=== PATIENT | female | born 1995 | race Caucasian/White ===

== ENCOUNTER 2022-06-29 06:25 | Inpatient (IN) | payer OTHER ==
[2022-06-29] MEDS: ELECTROLYTE-148 SOLN 1,000 ML IV SCH (07:45)
[2022-06-29] MEDS ORDERED: morphine SULFATE (PF) 1 MG/2 ML SYRINGE EP ONE (07:48)
[2022-06-29] MEDS ORDERED: ACETAMINOPHEN 325 MG TABLET (FP) PO PRN ×2 (07:48→10:00)
[2022-06-29] MEDS ORDERED: IBUPROFEN 600 MG TABLET (FP) PO PRN (07:48)
[2022-06-29] MEDS ORDERED: ONDANSETRON 4 MG/2 ML VIAL IVPUSH PRN (07:48)
[2022-06-29 07:52] VITALS: BMI 36.2
[2022-06-29] MEDS ORDERED: morphine SULFATE (PF) 1 MG/2 ML SYRINGE ONE (08:14)
[2022-06-29] MEDS ORDERED: ceFAZolin SODIUM 1 GM VIAL ONE (08:15)
[2022-06-29] MEDS ORDERED: ELECTROLYTE-148 SOLN 500 ML IV ONE (08:22)
[2022-06-29] MEDS ORDERED: CITRIC ACID/SODIUM CITRATE 30 ML UNIT-DOSE CUP PO ONE (08:22)
[2022-06-29] MEDS ORDERED: PHENYLEPHRINE HCL 10 MG/1 ML SINGLE DOSE VIAL ONE (08:32)
[2022-06-29] MEDS ORDERED: OXYTOCIN 10 UNITS/ML VIAL ONE (08:48)
[2022-06-29] MEDS ORDERED: KETOROLAC TROMETHAMINE 30 MG/1 ML VIAL ONE (08:59)
[2022-06-29] MEDS ORDERED: MIDAZOLAM HCL 2 MG/2 ML SINGLE DOSE VIAL ONE (08:59)
[2022-06-29] MEDS ORDERED: ONDANSETRON 4 MG/2 ML VIAL ONE (08:59)
[2022-06-29] MEDS ORDERED: FENTANYL CITRATE/PF 50 MCG/ML VIAL ONE (08:59)
[2022-06-29] MEDS: OXYTOCIN 20 UNITS in 0.9% NS 20 UNIT/1,000 ML INFUS.BAG IV SCH ×2 (09:50→17:13)
[2022-06-29] MEDS ORDERED: METHYLERGONOVINE MALEATE 0.2 MG/1 ML AMP IM PRN (10:00)
[2022-06-29] MEDS ORDERED: SENNOSIDES/DOCUSATE COMBO (SENNA PLUS) TABLET (UD) PO PRN (10:00)
[2022-06-29] MEDS ORDERED: IBUPROFEN 800 MG/8 ML IJ IVPB PRN (10:00)
[2022-06-29] MEDS ORDERED: OXYTOCIN 20 UNITS in 0.9% NS 20 UNIT/1,000 ML INFUS.BAG IV ONE (10:34)
[2022-06-29] MEDS: FERROUS SO4 325 MG TABLET (FP) PO SCH ×2 (11:11→17:01)
[2022-06-29] MEDS: PRENATAL VITAMINS W/ FOLIC ACID TABLET (FP) PO SCH (11:12)
[2022-06-29] MEDS ORDERED: oxyCODONE HCL 5 MG TABLET PO PRN (22:00)
[2022-06-30] MEDS: IBUPROFEN 600 MG TABLET (FP) PO PRN ×3 (05:30→17:04)
[2022-06-30] MEDS: SIMETHICONE 80 MG TAB.CHEW (FP) PO PRN ×3 (05:30→18:12)
[2022-06-30 08:16] LABS: BASO % 0.2 % (0-2.0); HEMATOCRIT 30.4 % (32.4-45.2); HEMOGLOBIN 10.3 GM/dL (10.7-15.3); LYMPH % 13.9 % (8-40); MCH 30.6 pg (25.7-33.7); MCHC 33.8 g/dl (32.0-36.0); MEAN CELL VOLUME 90.4 fl (80-96); MEAN PLT VOLUME 7.5 fl (7.5-11.1); MONO % 5.5 % (3.8-10.2); NEUT % 79.4 % (42.8-82.8); PLATELET COUNT 241 10^3/uL (134-434); RBC 3.37 M/mm3 (3.60-5.2); RDW 14.3 % (11.6-15.6); WHITE BLOOD COUNT 10.1 K/mm3 (4.0-10.0)
[2022-06-30] MEDS: FERROUS SO4 325 MG TABLET (FP) PO SCH ×2 (08:43→16:58)
[2022-06-30] MEDS ORDERED: BISACODYL 10 MG SUPP.RECT RC PRN (10:00)
[2022-06-30] MEDS: PRENATAL VITAMINS W/ FOLIC ACID TABLET (FP) PO SCH (10:29)
[2022-06-30] MEDS: oxyCODONE HCL 5 MG TABLET PO PRN ×2 (13:48→18:12)
[2022-06-30] MEDS: ELECTROLYTE-148 SOLN 1,000 ML IV SCH (19:42)
[2022-06-30] MEDS: OXYTOCIN 20 UNITS in 0.9% NS 20 UNIT/1,000 ML INFUS.BAG IV SCH (19:42)
[2022-07-01] MEDS: SIMETHICONE 80 MG TAB.CHEW (FP) PO PRN (03:50)
[2022-07-01] MEDS: PRENATAL VITAMINS W/ FOLIC ACID TABLET (FP) PO SCH ×2 (08:40→09:27)
[2022-07-01] MEDS: FERROUS SO4 325 MG TABLET (FP) PO SCH ×2 (08:40→16:37)
[2022-07-01] MEDS: ELECTROLYTE-148 SOLN 1,000 ML IV SCH (08:40)
[2022-07-01] MEDS: IBUPROFEN 600 MG TABLET (FP) PO PRN ×2 (08:48→16:37)
[2022-07-01] MEDS: oxyCODONE HCL 5 MG TABLET PO PRN (18:56)
[2022-07-01 20:25] VITALS: RESP 18
[2022-07-02 08:42] VITALS: BP 110/80; PULSE 90; TEMP 98
[2022-07-02] MEDS: FERROUS SO4 325 MG TABLET (FP) PO SCH (09:02)
[2022-07-02] MEDS: IBUPROFEN 600 MG TABLET (FP) PO PRN (09:02)
[2022-07-02] MEDS: PRENATAL VITAMINS W/ FOLIC ACID TABLET (FP) PO SCH (09:02)
[2022-07-02] MEDS: SIMETHICONE 80 MG TAB.CHEW (FP) PO PRN (09:02)
== END 2022-07-02 12:25 | disposition home or self-care (01) | DRG 540 ==
LOC: JLDR 06:25 → J3W 10:50
PROVIDERS: ADMIT Obstetrics & Gynecology; ATTEND Obstetrics & Gynecology
PROC: 10D00Z1 Extraction of Products of Conception, Low, Open Approach (ICD-10-PCS; principal; 2022-06-29)
DX: O32.1XX0 Maternal care for breech presentation, not applicable or unspecified (principal); Z3A.39 39 weeks gestation of pregnancy; Z37.0 Single live birth
CPT/HCPCS: 36415; 80053; 85025; 85610; 85730; 86780; 86850; 86900; 86901; 87389; 88307-TC; C9803-CS; U0003; U0005

== ENCOUNTER 2023-12-20 05:55 | Inpatient (IN) | payer OTHER ==
[2023-12-20] MEDS: ELECTROLYTE-148 SOLN 500 ML IV SCH (06:25)
[2023-12-20 06:43] VITALS: BMI 36.6
[2023-12-20] MEDS: ELECTROLYTE-148 SOLN 1,000 ML IV SCH (07:00)
[2023-12-20] MEDS: CITRIC ACID/SODIUM CITRATE 30 ML UNIT-DOSE CUP PO ONE (07:22)
[2023-12-20] MEDS ORDERED: OXYTOCIN 30 UNITS in 0.9% NS 30 UNIT/500 ML INFUS.BAG IVPB ONE (07:50)
[2023-12-20] MEDS ORDERED: FENTANYL CITRATE/PF 50 MCG/ML VIAL ONE (07:51)
[2023-12-20] MEDS ORDERED: morphine SULFATE/PF 1 MG/2 ML (2cc Syringe - QUVA) ONE (07:51)
[2023-12-20] MEDS ORDERED: OXYTOCIN 20 UNITS in 0.9% NS 20 UNIT/1,000 ML INFUS.BAG IV ONE (09:38)
[2023-12-20] MEDS ORDERED: METHYLERGONOVINE MALEATE 0.2 MG/1 ML AMP IM PRN (09:40)
[2023-12-20] MEDS: OXYTOCIN 20 UNITS in 0.9% NS 20 UNIT/1,000 ML INFUS.BAG IV SCH (09:45)
[2023-12-20] MEDS ORDERED: ONDANSETRON 4 MG/2 ML VIAL IVPUSH PRN (09:45)
[2023-12-20] MEDS: morphine SULFATE/PF 1 MG/2 ML (2cc Syringe - QUVA) IT ONE (11:16)
[2023-12-20] MEDS ORDERED: oxyCODONE HCL 5 MG TABLET PO PRN ×2 (21:40)
[2023-12-20] MEDS: IBUPROFEN 800 MG/8 ML IJ IVPB PRN (23:51)
[2023-12-20] MEDS: SIMETHICONE 80 MG TAB.CHEW (FP) PO PRN (23:51)
[2023-12-21] MEDS: ACETAMINOPHEN 1000 MG/100 ML BAG IVPB PRN (03:37)
[2023-12-21 08:06] LABS: BASO % 0.2 % (0-2.0); EOS % 0.3 % (0-4.5); HEMATOCRIT 27.7 % (32.4-45.2); HEMOGLOBIN 9.4 GM/dL (10.7-15.3); LYMPH % 22.8 % (8-40); MCH 30.2 pg (25.7-33.7); MEAN CELL VOLUME 88.9 fl (80-96); MEAN PLT VOLUME 8.2 fl (7.5-11.1); MONO % 6.9 % (3.8-10.2); NEUT % 69.8 % (42.8-82.8); PLATELET COUNT 200 10^3/uL (134-434); RBC 3.12 M/mm3 (3.60-5.2); RDW 14.4 % (11.6-15.6); WHITE BLOOD COUNT 8.2 K/mm3 (4.0-10.0)
[2023-12-21] MEDS ORDERED: ACETAMINOPHEN 325 MG TABLET (FP) PO PRN (09:40)
[2023-12-21] MEDS: PRENATAL VITAMINS W/ FOLIC ACID TABLET (FP) PO SCH (10:26)
[2023-12-21] MEDS: IBUPROFEN 600 MG TABLET (FP) PO PRN (10:27)
[2023-12-21] MEDS: FERROUS SO4 325 MG TABLET (FP) PO SCH (16:45)
[2023-12-22] MEDS: SENNOSIDES/DOCUSATE COMBO (SENNA PLUS) TABLET (UD) PO PRN (21:23)
[2023-12-22] MEDS: BISACODYL 10 MG SUPP.RECT RC PRN (21:25)
[2023-12-23 09:54] VITALS: BP 113/67; PULSE 91; RESP 16; TEMP 98.7
== END 2023-12-23 16:00 | disposition home or self-care (01) | DRG 540 ==
LOC: JLDR 05:55 → J3W 11:50
PROVIDERS: ADMIT Obstetrics & Gynecology; ATTEND Obstetrics & Gynecology
PROC: 10D00Z1 Extraction of Products of Conception, Low, Open Approach (ICD-10-PCS; principal; 2023-12-20)
DX: O34.211 Maternal care for low transverse scar from previous cesarean delivery (principal); O36.63X0 Maternal care for excessive fetal growth, third trimester, not applicable or unspecified; Z3A.39 39 weeks gestation of pregnancy; Z37.0 Single live birth
CPT/HCPCS: 36415; 59409; 80053; 85025; 85610; 85730; 86780; 86803; 86850; 86900; 86901; 87389; 88307-TC; 94010; J0131